=== PATIENT | male | born 1980 | race Caucasian/White ===

== ENCOUNTER 2017-07-11 09:35 | Emergency (ER) | payer SELFPAY ==
[2017-07-11 09:45] VITALS: BP 116/79
== END 2017-07-11 11:33 | disposition left against medical advice (07) ==
LOC: ED 09:35
DX: M79.604 Pain in right leg (principal); Z53.21 Procedure and treatment not carried out due to patient leaving prior to being seen by health care provider

== ENCOUNTER 2017-08-04 17:35 | Emergency (ER) | payer SELFPAY ==
[2017-08-04 17:54] VITALS: BP 119/80
[2017-08-04] MEDS ORDERED: KEFLEX PO ONE ×3 (19:27→20:27)
[2017-08-04] MEDS ORDERED: NORCO 5/325 PO ONE (19:27)
[2017-08-04] MEDS ORDERED: BOOSTRIX IM ONE (19:27)
--- NOTE | 2017-08-04 19:27 | Emergency Department Report ---
ED Laceration HPI - HPI Chief Complaint: Laceration/Recheck/Suture Stated Complaint: LEFT THUMB LACERATION Time Seen by Provider: 08/04/17 19:17 Occurred When: Today Location: Upper Extremity (left thumb) Severity: severe (08/03) Tetanus Status: Not up to Date Laceration Symptoms: Yes Pain (thumb laceration site), No Foreign Body Sensation , No Numbness, No Weakness Other History: Patient he reports that he cut his left thumb prior to coming to the emergency room. He said he was located in his book bag and a box closing machine operator was in his book bag that was open and it sliced his thumb. Denies any numbness or tingling. Tetanus vaccine is up-to-date. Reports bleeding. With pressure dressing. Pain is 10 out of 10 and throbbing. No [id number] medication taken. Denies any restriction in movement of his fingers on the left hand. Denies any radiation of pain from his left thumb to his hands. ED Review of Systems ROS: Stated complaint: LEFT THUMB LACERATION Other details as noted in HPI Comment: All other systems reviewed and negative Constitutional: no symptoms reported Respiratory: no symptoms reported Cardiovascular: denies: chest pain, palpitations, edema, syncope Gastrointestinal: denies: nausea, vomiting Musculoskeletal: arthralgia. denies: back pain, joint swelling, myalgia Skin: other (laceration left thumb) Neurological: denies: numbness, paresthesias ED Past Medical Hx - Past Medical History Previous Medical History?: No - Surgical History Past Surgical History?: No - Family History Family history: no significant - Social History Smoking Status: Former Smoker Substance Use Type: Alcohol Other Social History: - Medications Home Medications: Home Medications Medication Instructions Recorded Confirmed Last Taken Type Cephalexin [Keflex] 500 mg PO Q8HR #21 cap 08/04/17 Unknown Rx Ibuprofen [Motrin] 600 mg PO Q8H PRN #15 tablet 08/04/17 Unknown Rx Laceration Physical Exam - Exam General: Vital signs noted. No distress. Alert and acting appropriately. This is a 37-year-old male well-nourished well-developed in no acute distress Lungs: Clear to Auscultated bilaterally, no rhonchi wheezes or rales. Normal work of breathing Cardiovascular: S1, S2. Regular rate rhythm. Negative murmur Extremity: No clubbing, cyanosis or edema. +2 pulses in all extremities. No signs of tendon injury. No neurovascular compromise. Psych: Normal mood and behavior. Wound Length (cm): 2 (linear and superficial) Laceration Location: Upper Extremity (left mid-thumb, dorsal aspect) Laceration Exam: Yes Normal Distal CMS (patient able to open and close both hands without any difficulties. He is able to move fingers in both hands without any difficulties.), No Foreign Body, No Exposed Tendon, Vessel, or Nerve , No Tendon Injury ED Course Vital Signs 08/04/17 17:51 Temperature 98.3 F Pulse Rate 63 Respiratory 18 Rate Blood Pressure 119/80 O2 Sat by Pulse 99 Oximetry - Reevaluation(s) Reevaluation #1: 08/04/17 20:25 Patient given Keflex 1 g by mouth and emergency room to prevent infection, Boostrix 0.5 mL to update tetanus and Potter 5/325 2 tablet given for pain prior to procedure. See procedure note for detail on laceration repair. - Laceration /Wound Repair Left Medial Dorsal Finger Wound Location: upper extremity (left thumb) Wound Length (cm): 2 Wound's Depth, Shape: superficial, linear Wound Explored: no foreign body removed Irrigated w/ Saline (ccs): 350 Betadine Prep?: Yes Anesthesia: 0.5% Sensorcaine (0.5% Marcaine) Volume Anesthetic (ccs): 1 (0.5 mL) Wound Debrided: moderate Wound Repaired With: sutures Suture Size/Type: 4:0, proline Number of Sutures: 8 Layer Closure?: No Sterile Dressing Applied?: Yes (sterile bulky dressing) ED Medical Decision Making - Medical Decision Making ED course: She is status post laceration to left dorsal, medial thumb. Physical findings for superficial laceration to the left medial thumb. Patient has no signs of tendon injury and has no restrictions and movement to thumb and other fingers and left hand. He has no radiation of pain. Pain is localized to laceration site. Laceration repair under sterile procedure. See procedure note for details. Sterile bulky dry dressing placed the side. Patient instructed to keep dressing on for 24 hours and not to do any vigorous activity with his left hand especially thumb for at least 4 days to allow suture site to heal. He was given tetanus vaccine boostrix 0.5 mL, Keflex 1 g by mouth in emergency room and he was also given Potter 5/325 2 tablets prior to procedure. Patient tolerated procedure well. Patient discharged home with prescription for Motrin and Keflex and to return to emergency room in 7-10 days to have stitches removed from left thumb. He was understanding the discharge instructions and treatment plan and discharged home with his family in stable condition. Critical care attestation.: If time is entered above; I have spent that time in minutes in the direct care of this critically ill patient, excluding procedure time. ED Disposition Clinical Impression: Pain of left thumb Laceration of left thumb with foreign body and damage to nail Qualifiers: Encounter type: initial encounter Qualified Code(s): S61.122A - Laceration with foreign body of left thumb with damage to nail, initial encounter Disposition: TO HOME OR SELFCARE Is pt being admited?: No Does the pt Need Aspirin: No Condition: Stable Instructions: Laceration (ED), Suture Care (ED), Arthralgia (ED) Additional Instructions: Please return to emergency room in 7-10 days to have stitches removed. Keep affected area clean and dry Avoid vigorous activity with your left thumb and her left hand for at least 4 days to allow wound edges to heal. Take medications include antibiotics. If you noticed that his sinus infection such as, redness, increased pain, restriction in movement and radiation of pain, fever and/or chills and pus from affected area please return to the emergency room [facility]. Prescriptions: Cephalexin [Keflex] 500 mg PO Q8HR #21 cap Ibuprofen [Motrin] 600 mg PO Q8H PRN #15 tablet PRN Reason: Pain Referrals: [facility] [Outside] - 08/06/17 please return, to emergency room [Other] - 7-10 days (To have stitches removed.) Forms: Accompanied Note, Work/School Release Form(ED)
[2017-08-04] MEDS ORDERED: NACL 0.9% IR ONE (19:59)
[2017-08-04] MEDS ORDERED: NACL 0.9% 500 ML IR ONE (20:00)
[2017-08-04] MEDS ORDERED: MARCAINE 0.5% INFILTRATI ONE ×2 (20:08→20:11)
== END 2017-08-04 20:44 | disposition home or self-care (01) ==
LOC: ED 17:35
DX: S61.122A Laceration with foreign body of left thumb with damage to nail, initial encounter (principal); Z87.891 Personal history of nicotine dependence; W45.8XXA Other foreign body or object entering through skin, initial encounter; Y93.89 Activity, other specified; Y99.8 Other external cause status; Y92.89 Other specified places as the place of occurrence of the external cause
CPT/HCPCS: 90471; 90715; 96372

== ENCOUNTER 2017-08-11 16:24 | Emergency (ER) | payer SELFPAY ==
[2017-08-11 16:38] VITALS: BP 107/65
== END 2017-08-11 21:50 | disposition left against medical advice (07) ==
LOC: ED 16:24
DX: Z48.02 Encounter for removal of sutures (principal); Z53.21 Procedure and treatment not carried out due to patient leaving prior to being seen by health care provider

== ENCOUNTER 2017-08-15 07:27 | Emergency (ER) | payer SELFPAY ==
[2017-08-15 07:46] VITALS: BP 121/77
--- NOTE | 2017-08-15 08:19 | Emergency Department Report ---
Suture/Staple Removal - HPI Chief Complaint: Laceration/Recheck/Suture Stated Complaint: SUTURE REMOVAL Time Seen by Provider: 08/15/17 08:17 ED Review of Systems ROS: Stated complaint: SUTURE REMOVAL Other details as noted in HPI Comment: All other systems reviewed and negative Constitutional: see HPI Eyes: as per HPI ENT: as per HPI Respiratory: see HPI Cardiovascular: as per HPI Endocrine: see HPI Gastrointestinal: as per HPI Genitourinary: as per HPI Musculoskeletal: as per HPI Skin: as per HPI Neurological: as per HPI Psychiatric: as per HPI Hematological/Lymphatic: as per HPI ED Past Medical Hx - Past Medical History Previous Medical History?: No - Surgical History Past Surgical History?: No - Social History Smoking Status: Never Smoker Substance Use Type: Alcohol - Medications Home Medications: Home Medications Medication Instructions Recorded Confirmed Last Taken Type Cephalexin [Keflex] 500 mg PO Q8HR #21 cap 08/04/17 Unknown Rx Ibuprofen [Motrin] 600 mg PO Q8H PRN #15 tablet 08/04/17 Unknown Rx Suture Removal Exam - Exam General: Vital signs noted. No distress. Alert and acting appropriately. Wound: No Pathologic Erythema, No Tenderness, No Drainage, No Pus, No Wound Dehiscence Other Systems: All other systems reviewed and are unremarkable. ED Course Vital Signs 08/15/17 07:43 Temperature 98.4 F Pulse Rate 59 L Respiratory 16 Rate Blood Pressure 121/77 O2 Sat by Pulse 99 Oximetry - Reevaluation(s) Reevaluation #1: 08/15/17 08:29 sutures removed wo difficulty no s/s infection ED Recheck MDM - Differential Diagnosis Suture/Staple Removal - Medical Decision Making see note Critical care attestation.: If time is entered above; I have spent that time in minutes in the direct care of this critically ill patient, excluding procedure time. ED Disposition Clinical Impression: Visit for suture removal Disposition: DC- TO HOME OR SELFCARE Is pt being admited?: No Does the pt Need Aspirin: No Condition: Stable Instructions: Suture Removal (ED) Additional Instructions: keep clean and dry allow steri strips to fall off Referrals: CALDERON BEDOLLA MD [Staff Physician] - 3-5 Days RAJANI ORTEGA JR, MD [Staff Physician] - 3-5 Days Time of Disposition: 08:18
== END 2017-08-15 09:00 | disposition home or self-care (01) ==
LOC: ED 07:27
DX: Z48.02 Encounter for removal of sutures (principal)